=== PATIENT | male | born 1980 | race Hispanic/Latino ===

== ENCOUNTER 2021-03-11 06:03 | Emergency (ER) | payer SELFPAY ==
[2021-03-11] MEDS ORDERED: ASPIRIN 325 MG TAB PO ONE (06:46)
--- NOTE | 2021-03-11 07:00 | Emergency Department Report ---
ED Chest Pain HPI - General Chief Complaint: Chest Pain Stated Complaint: CHEST PAIN Time Seen by Provider: 03/11/21 06:16 Source: patient Mode of arrival: Ambulatory Limitations: No Limitations - History of Present Illness Initial Comments: 40-year-old male, denies any past medical history, presents to ED stating "I had a heart attack." Patient reports onset of chest pain that awoke him from sleep earlier this morning. States pain is left-sided, pressure-like, and constant. Pain is nonradiating. He denies any aggravating or alleviating factors. He denies any fever or cough, leg pain or swelling, shortness of breath. MD Complaint: chest pain -: This morning Onset: awoke with symptoms Pain Location: left chest Pain Radiation: none Severity: moderate Severity scale (0 -10): 9 Quality: pressure Consistency: constant Improves With: nothing Worsens With: nothing re: denies: nausea, vomting, diaphoresis, dyspnea Other Symptoms: denies: cough, fever, leg swelling Treatments Prior to Arrival: none - Related Data Previous Rx's Medication Instructions Recorded Last Taken Type amLODIPine 5 mg PO DAILY #30 tab 03/11/21 Unknown Rx Allergies Allergy/AdvReac Type Severity Reaction Status Date / Time No Known Allergies Allergy Verified 03/11/21 07:39 Heart Score - HEART Score History: Slightly suspicious EKG: Normal Age: < 45 Risk factors: 1-2 risk factors Troponin: < normal limit HEART Score: 1 - EKG Read Time Time EKG Completed: 06:08 EKG Read Time: 06:10 ED Review of Systems ROS: Stated complaint: CHEST PAIN Other details as noted in HPI Comment: All other systems reviewed and negative Constitutional: denies: chills, fever Respiratory: denies: cough, shortness of breath Cardiovascular: chest pain Gastrointestinal: denies: nausea, vomiting Musculoskeletal: other (Denies leg pain or swelling) ED Past Medical Hx - Past Medical History Previous Medical History?: No - Surgical History Past Surgical History?: No - Medications Home Medications: Home Medications Medication Instructions Recorded Confirmed Last Taken Type amLODIPine 5 mg PO DAILY #30 tab 03/11/21 Unknown Rx ED Physical Exam - General Limitations: No Limitations General appearance: alert, in no apparent distress, other (Comfortable, using cell phone) - Head Head exam: Present: atraumatic, normocephalic - Eye Eye exam: Present: normal appearance, EOMI - ENT ENT exam: Present: mucous membranes moist - Neck Neck exam: Present: normal inspection - Respiratory Respiratory exam: Present: normal lung sounds bilaterally. Absent: respiratory distress - Cardiovascular Cardiovascular Exam: Present: regular rate, normal rhythm - GI/Abdominal GI/Abdominal exam: Present: soft. Absent: distended, tenderness - Extremities Exam Extremities exam: Present: normal inspection. Absent: pedal edema, calf tenderness - Neurological Exam Neurological exam: Present: alert, oriented X3 - Psychiatric Psychiatric exam: Present: flat affect - Skin Skin exam: Present: warm, dry, intact, normal color ED Course Vital Signs 03/11/21 03/11/21 03/11/21 06:17 06:52 07:00 Temperature 98.4 F Pulse Rate 79 84 86 Respiratory 18 13 16 Rate Blood Pressure 166/106 Blood Pressure 159/106 [Left] O2 Sat by Pulse 98 96 99 Oximetry 03/11/21 03/11/21 03/11/21 07:16 07:25 07:30 Temperature Pulse Rate 80 79 Respiratory 16 16 Rate Blood Pressure 166/106 166/106 Blood Pressure [Left] O2 Sat by Pulse 99 99 99 Oximetry 03/11/21 03/11/21 03/11/21 07:40 07:46 08:00 Temperature 98.1 F Pulse Rate 80 79 78 Respiratory 12 13 12 Rate Blood Pressure 166/106 166/106 Blood Pressure 175/109 [Left] O2 Sat by Pulse 97 97 99 Oximetry 03/11/21 03/11/21 03/11/21 08:05 08:09 08:16 Temperature 97.3 F L Pulse Rate 73 73 72 Respiratory 12 9 L Rate Blood Pressure 171/116 175/109 Blood Pressure 171/119 [Left] O2 Sat by Pulse 97 99 Oximetry 03/11/21 03/11/21 03/11/21 08:40 08:44 08:46 Temperature Pulse Rate 74 77 Respiratory 11 L 12 Rate Blood Pressure 149/98 149/98 Blood Pressure [Left] O2 Sat by Pulse 100 100 98 Oximetry 03/11/21 03/11/21 03/11/21 08:53 09:00 09:16 Temperature 97.8 F Pulse Rate 76 78 74 Respiratory 14 18 18 Rate Blood Pressure 149/98 149/98 Blood Pressure 149/98 [Left] O2 Sat by Pulse 100 98 97 Oximetry 03/11/21 03/11/21 03/11/21 09:30 09:46 10:00 Temperature Pulse Rate 75 68 Respiratory 16 18 12 Rate Blood Pressure 149/98 149/98 149/98 Blood Pressure [Left] O2 Sat by Pulse 99 97 97 Oximetry 03/11/21 03/11/21 03/11/21 10:16 10:30 10:46 Temperature Pulse Rate 73 77 74 Respiratory 15 11 L 14 Rate Blood Pressure 149/98 149/98 149/98 Blood Pressure [Left] O2 Sat by Pulse 99 99 99 Oximetry 03/11/21 03/11/21 11:00 11:16 Temperature Pulse Rate 71 66 Respiratory 17 15 Rate Blood Pressure 149/98 149/98 Blood Pressure [Left] O2 Sat by Pulse 99 99 Oximetry ED Medical Decision Making - Lab Data Result diagrams: 03/11/21 07:06 03/11/21 07:06 - EKG Data -: EKG Interpreted by [place] EKG shows normal: sinus rhythm, axis, intervals, QRS complexes, ST-T waves Rate: normal - EKG Data Interpretation: no acute changes - Radiology Data Radiology results: report reviewed, image reviewed - Medical Decision Making 40-year-old male presents to ED with complaint of pressure-like chest pain. EKG is normal. Troponin is negative x2. Chest x-ray normal. Patient is hyperten sive. Labetalol given. Blood pressure did improve. Patient will be discharged at this time as heart score is 1. He will be discharged with blood pressure medications. Patient information faxed to [facility] for urgent cardiology follow-up. Return precautions given. - Differential Diagnosis ACS, pneumonia, chest wall pain Critical care attestation.: If time is entered above; I have spent that time in minutes in the direct care of this critically ill patient, excluding procedure time. ED Disposition Clinical Impression: Chest pain, Uncontrolled hypertension Disposition: 01 HOME / SELF CARE / HOMELESS Is pt being admited?: No Condition: Stable Instructions: Nonspecific Chest Pain, Adult, Hypertension (ED) Prescriptions: amLODIPine 5 mg PO DAILY #30 tab Referrals: PRIMARY CAREMD [Primary Care Provider] - 3-5 Days [facility] [Provider Group] - 3-5 Days GLO PINTO MD [Staff Physician] - 3-5 Days Time of Disposition: 11:17
[2021-03-11 07:21] LABS: Basophils % (Auto) 0.4 % (0.0-1.8); Eosinophils # (Auto) 0.1 K/mm3 (0.0-0.4); Eosinophils % (Auto) 1.6 % (0.0-4.3); Hemoglobin 15.6 gm/dl (11.8-15.2); Lymphocytes # (Auto) 2.1 K/mm3 (1.2-5.4); Lymphocytes % (Auto) 24.9 % (13.4-35.0); Mean Corpuscular HGB Conc 36 % (32-34); Mean Corpuscular Volume 92 fl (84-94); Monocytes # (Auto) 0.7 K/mm3 (0.0-0.8); Monocytes % (Auto) 8.3 % (0.0-7.3); Platelet Count 127 K/mm3 (140-440); Red Blood Count 4.69 M/mm3 (3.65-5.03); Red Cell Distribution Width 12.9 % (13.2-15.2)
[2021-03-11 07:22] LABS: Hematocrit 43.3 % (35.5-45.6)
[2021-03-11 08:04] LABS: BUN/Creatinine Ratio 18; Blood Urea Nitrogen 14 mg/dL (9-20); Calcium 9.1 mg/dL (8.4-10.2); Hemolysis Index 6
--- NOTE | 2021-03-11 08:28 | XRay Report ---
CHEST 2 VIEWS INDICATION / CLINICAL INFORMATION: chest pain. COMPARISON: None available. FINDINGS: SUPPORT DEVICES: None. HEART / MEDIASTINUM: No significant abnormality. LUNGS / PLEURA: No significant pulmonary or pleural abnormality. No pneumothorax. ADDITIONAL FINDINGS: Old, healed right clavicle fracture. IMPRESSION: 1. No acute findings. Signer Name: Brian Parisi MD Signed: 03/11/2021 8:23 AM Workstation Name: [id number]
[2021-03-11 08:54] VITALS: BP 149/98
--- NOTE | 2021-03-12 13:28 | Electrocardiograph Report ---
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
== END 2021-03-11 11:40 | disposition home or self-care (01) ==
LOC: ED 06:03
DX: R07.9 Chest pain, unspecified (principal); I10 Essential (primary) hypertension
CPT/HCPCS: 36415; 71046; 80048; 84484; 85025; 93005; 96374; 99284